=== PATIENT | male | born 2000 | race African-American/Black ===

== ENCOUNTER 2024-08-07 22:32 | Emergency (ER) | payer OTHER ==
[2024-08-08] MEDS ORDERED: Naproxen 500 MG TAB ONE (01:18)
== END 2024-08-08 01:26 | disposition home or self-care (01) ==
LOC: CSHERS 22:32
DX: S13.4XXA Sprain of ligaments of cervical spine, initial encounter (principal); V89.9XXA Person injured in unspecified vehicle accident, initial encounter
CPT/HCPCS: 99283

== ENCOUNTER 2024-09-26 03:16 | Emergency (ER) | payer SELFPAY ==
[2024-09-26] MEDS ORDERED: Fluorescein Opthalmic Strip ONE (03:28)
[2024-09-26] MEDS ORDERED: Proparacaine 0.5% Opth 15 ML BOT ONE (03:28)
== END 2024-09-26 04:05 | disposition home or self-care (01) ==
LOC: CSHERS 03:16
DX: S05.02XA Injury of conjunctiva and corneal abrasion without foreign body, left eye, initial encounter (principal); H20.9 Unspecified iridocyclitis; Y04.2XXA Assault by strike against or bumped into by another person, initial encounter
CPT/HCPCS: 99283

== ENCOUNTER 2024-09-29 21:32 | Emergency (ER) | payer SELFPAY | END 2024-09-29 21:55 | disposition home or self-care (01) | LOC: CSHERS 21:32 | DX: H20.00 Unspecified acute and subacute iridocyclitis (principal); W22.8XXA Striking against or struck by other objects, initial encounter | CPT/HCPCS: 99283 ==